=== PATIENT | male | born 1950 | race Caucasian/White ===

== ENCOUNTER → 2019-03-19 | Outpatient (CLI) | payer MEDICARE ==
--- NOTE | 2019-03-19 13:42 | REP ---
Clinical: Right knee pain. Technique: AP, lateral, bilateral oblique and sunrise views of the right knee. Findings: There appears to be any avulsion fracture involving the head of the fibula along with overlying soft tissue swelling and possible effusion. Distal femur, proximal tibia, and patella appear intact. Impression: Presumed a avulsion fracture involving the proximal tip of the fibula. Overlying swelling and effusion.
== END ==
LOC: M CLY 12:45
PROVIDERS: ATTEND Family Medicine
DX: M25.461 Effusion, right knee (principal); M25.561 Pain in right knee
CPT/HCPCS: 73564; G0463

== ENCOUNTER → 2021-07-19 | Outpatient (REF) | payer MEDICARE ==
[2021-07-19 16:01] LABS: BASO % 0.5 % (0.0-1.0); EOS # 0.2 10^3/uL (0.0-0.5); EOS % 3.1 % (0.0-3.0); HEMATOCRIT 45.5 % (42.0-52.0); HEMOGLOBIN 14.8 g/dl (13.5-17.5); LYMPH # 1.6 10^3/uL (1.5-5.0); LYMPH % 25.8 % (24.0-44.0); MEAN CORPUSCULAR HEMOGLOBIN 30.2 pg (27.0-33.0); MEAN CORPUSCULAR HGB CONC 32.5 g/dl (32.0-36.5); MEAN CORPUSCULAR VOLUME 92.9 fl (80.0-96.0); MONO # 0.6 10^3/uL (0.0-0.8); MONO % 8.9 % (2.0-8.0); NEUTROPHILS # 3.8 10^3/uL (1.5-8.5); NEUTROPHILS % 61.4 % (36.0-66.0); PLATELET COUNT, AUTOMATED 234 10^3/uL (150-450); WHITE BLOOD COUNT 6.2 10^3/uL (4.0-10.0)
[2021-07-19 16:58] LABS: ALBUMIN 3.5 GM/DL (3.2-5.2); ALT/SGPT 40 U/L (12-78); BILIRUBIN,TOTAL 0.7 MG/DL (0.2-1.0); BLOOD UREA NITROGEN 20 MG/DL (7-18); CALCIUM LEVEL 9.4 MG/DL (8.8-10.2); CARBON DIOXIDE LEVEL 26 MEQ/L (21-32); CHLORIDE LEVEL 106 MEQ/L (98-107); CHOLESTEROL LEVEL 206 MG/DL (<200); CHOLESTEROL RISK RATIO 5.024 (<5); FERRITIN 150 NG/ML (26-388); GLOMERULAR FILTRATION RATE > 60.0 (>42); GLUCOSE, FASTING 96 MG/DL (70-100); HDL CHOLESTEROL 41 MG/DL (>40); IRON (FE) 79 UG/DL (65-175); LDL CHOLESTEROL 137 MG/DL (<100); NON-HDL-C 165 MG/DL; POTASSIUM SERUM 4.8 MEQ/L (3.5-5.1); RHEUMATOID FACTOR QUANT 13.9 IU/ML (<15.0); SODIUM LEVEL 137 MEQ/L (136-145); THYROXINE (T4) 7.3 UG/DL (4.5-12.0); TRIGLYCERIDES LEVEL 140 MG/DL (<150); URIC ACID 4.9 MG/DL (3.5-7.2); VITAMIN B12 LEVEL 238 PG/ML (247-911)
[2021-07-19 17:04] LABS: ERYTHROCYTE SEDIMENTATION RATE 7 mm/hr (0-20)
[2021-07-19 17:39] LABS: HEMOGLOBIN A1c 5.5 %
[2021-07-21 15:08] LABS: Lyme Disease IgG/IgM Antibodie <0.91 ISR (0.00-0.90); Lyme Disease IgM Ab Quantitati <0.80 index (0.00-0.79)
== END ==
LOC: M SFHCCLAY 10:27
PROVIDERS: ATTEND Family Medicine
DX: E61.1 Iron deficiency (principal); W57.XXXA Bitten or stung by nonvenomous insect and other nonvenomous arthropods, initial encounter; R76.8 Other specified abnormal immunological findings in serum; E78.2 Mixed hyperlipidemia; R53.82 Chronic fatigue, unspecified; Z13.29 Encounter for screening for other suspected endocrine disorder; R73.01 Impaired fasting glucose; Z12.5 Encounter for screening for malignant neoplasm of prostate; E55.9 Vitamin D deficiency, unspecified; Y99.9 Unspecified external cause status
CPT/HCPCS: 80053; 80061; 82607; 82652; 82728; 82746; 83036; 83090; 83540; 84402; 84403; 84436; 84443; 84550; 85025; 85652; 86038; 86140; 86200; 86431; 86617; G0103

== ENCOUNTER → 2022-05-16 | Outpatient (CLI) | payer MEDICARE | LOC: M CLY 09:32 | PROVIDERS: ATTEND Family Medicine | DX: M54.2 Cervicalgia (principal); M25.511 Pain in right shoulder; M47.812 Spondylosis without myelopathy or radiculopathy, cervical region ==

== ENCOUNTER → 2022-06-15 | Outpatient (REF) | payer MEDICARE ==
[2022-06-15 17:21] LABS: BASO % 0.6 % (0.0-1.0); EOS # 0.1 10^3/uL (0.0-0.5); EOS % 1.7 % (0.0-3.0); HEMATOCRIT 46.1 % (42.0-52.0); HEMOGLOBIN 14.9 g/dl (13.5-17.5); LYMPH # 1.7 10^3/uL (1.5-5.0); LYMPH % 23.6 % (24.0-44.0); MEAN CORPUSCULAR HGB CONC 32.3 g/dl (32.0-36.5); MEAN CORPUSCULAR VOLUME 92.9 fl (80.0-96.0); MONO # 0.6 10^3/uL (0.0-0.8); MONO % 8.3 % (2.0-8.0); NEUTROPHILS # 4.6 10^3/uL (1.5-8.5); NEUTROPHILS % 65.4 % (36.0-66.0); PLATELET COUNT, AUTOMATED 262 10^3/uL (150-450); RED BLOOD COUNT 4.96 10^6/uL (4.30-6.10); WHITE BLOOD COUNT 7.1 10^3/uL (4.0-10.0)
[2022-06-15 18:08] LABS: ERYTHROCYTE SEDIMENTATION RATE 10 mm/hr (0-20)
[2022-06-15 18:16] LABS: C REACTIVE PROTEIN QUANTITATIV < 0.30 MG/DL (0.00-0.30); CHOLESTEROL LEVEL 208 MG/DL (<200); FREE T4 0.83 NG/DL (0.76-1.46); HDL CHOLESTEROL 50 MG/DL (>40); IRON (FE) 87 UG/DL (65-175); LDL CHOLESTEROL 130 MG/DL (<100); NON-HDL-C 158 MG/DL; PERCENT SATURATION 27.3 % (19.7-50.0); RHEUMATOID FACTOR QUANT 21.3 IU/ML (<15.0); TOTAL IRON BINDING CAPACITY 319 UG/DL (250-450); TRIGLYCERIDES LEVEL 139 MG/DL (<150)
[2022-06-15 19:00] LABS: VITAMIN B12 LEVEL 337 PG/ML (247-911)
[2022-06-15 19:03] LABS: HEMOGLOBIN A1c 5.6 %
[2022-06-17 14:07] LABS: FOLATE 14.4 ng/mL (>3.0)
[2022-06-18 18:06] LABS: ANA (HEP2) Positive (.); HOMOCYST(E)INE SERUM 7.6 umol/L (0.0-19.2); TESTOSTERONE FREE (DIRECT) 11.6 pg/mL (6.6-18.1)
== END ==
LOC: M SFHCCLAY 10:32
PROVIDERS: ATTEND Family Medicine
DX: R76.8 Other specified abnormal immunological findings in serum (principal); M25.50 Pain in unspecified joint; E53.8 Deficiency of other specified B group vitamins; Z12.5 Encounter for screening for malignant neoplasm of prostate; E78.2 Mixed hyperlipidemia; R73.01 Impaired fasting glucose; E55.9 Vitamin D deficiency, unspecified; Z13.29 Encounter for screening for other suspected endocrine disorder
CPT/HCPCS: 80061; 82607; 82652; 82746; 83036; 83090; 83550; 84402; 84403; 84439; 84443; 85025; 85652; 86038; 86140; 86431; 86618; G0103

== ENCOUNTER → 2022-09-19 | Outpatient (CLI) | payer MEDICARE | LOC: M CLY 15:04 | PROVIDERS: ATTEND Family Medicine | DX: R05.2 Subacute cough (principal); Z53.9 Procedure and treatment not carried out, unspecified reason ==

== ENCOUNTER → 2022-09-19 | Outpatient (CLI) | payer MEDICARE | LOC: M CLY 15:11 | PROVIDERS: ATTEND Family Medicine | DX: R05.2 Subacute cough (principal) ==

== ENCOUNTER → 2023-07-02 | Outpatient (CLI) | payer MEDICARE | LOC: M CLY 14:38 | PROVIDERS: ATTEND Family Medicine | DX: M47.816 Spondylosis without myelopathy or radiculopathy, lumbar region (principal) ==

== ENCOUNTER → 2023-08-15 | Outpatient (CLI) | payer MEDICARE | LOC: M CLY 10:39 | PROVIDERS: ATTEND Family Medicine | DX: M25.521 Pain in right elbow (principal); Z98.890 Other specified postprocedural states ==

== ENCOUNTER → 2024-02-26 | Outpatient (REF) | payer MEDICARE | LOC: M LAB REF 17:42 | PROVIDERS: ATTEND Surgery | DX: D04.62 Carcinoma in situ of skin of left upper limb, including shoulder (principal) ==

== ENCOUNTER → 2024-05-28 | Outpatient (REF) | payer MEDICARE | LOC: M SFHCDERM 13:11 | PROVIDERS: ATTEND Physician Assistant | DX: C44.319 Basal cell carcinoma of skin of other parts of face (principal) ==

== ENCOUNTER → 2024-08-01 | Outpatient (CLI) | payer MEDICARE ==
[~2024-08-01] MED LIST: PROHANCE 279.3MG/ML 15ML VIAL ONE
== END ==
LOC: M PLAIMG 10:01
PROVIDERS: ATTEND Family Medicine
DX: R97.20 Elevated prostate specific antigen [PSA] (principal); R93.89 Abnormal findings on diagnostic imaging of other specified body structures
CPT/HCPCS: 72197; A9576